=== PATIENT | male | born 1965 | race Caucasian/White ===

== ENCOUNTER 2022-08-05 17:10 | Emergency (ER) | payer BC, SELFPAY ==
[2022-08-05 17:11] VITALS: BP 145/89; PULSE 116; RESP 14; TEMP 36.2; O2SAT 99; BMI 27.8
--- NOTE | 2022-08-05 17:28 | CT_ITS ---
STUDY: CT ABDOMEN AND PELVIS WITHOUT CONTRAST REASON FOR EXAM: Male, 57 years old. Pain RADIATION DOSAGE (If Supplied By Facility): CTDIvol = ( 11.07 ) mGy, DLP = ( 572.47 ) mGycm TECHNIQUE: Transaxial images were obtained from the dome of the diaphragm to the symphysis pubis without oral contrast, and without intravenous contrast. Sagittal and coronal images were reconstructed. Individualized dose optimization techniques were used for this CT. COMPARISON: None. FINDINGS: The visualized lung bases are unremarkable. The visualized portions of the heart are within normal limits. Nonspecific fatty infiltrated liver without mass or bile duct dilatation.. Normal gallbladder and extrahepatic biliary system. Normal spleen. Normal pancreas. Normal bilateral adrenal glands. Normal right kidney. Normal left kidney. Normal visualized stomach. Normal small intestine. Diverticular changes of the descending colon with focal segmental thickening of the membreno of the distal descending colon and stranding in the fat consistent with acute diverticulitis. There is no peridiverticular abscess. No evidence for acute appendicitis. Mild atherosclerotic changes of the aorta without evidence for aneurysm. Normal inferior vena cava. Normal retroperitoneum. Poorly distended bladder which cannot be adequately evaluated.. There is a very small amount of fluid within the pouch of Rohan. Small bilateral fat-containing inguinal hernias. Lumbar spine demonstrates mild degenerative change CT/Abdomen/Pelvis without Cont IMPRESSION: Acute diverticulitis of the distal descending colon without evidence for peridiverticular abscess. Electronically Signed: Atif Guthrie MD at 18:02 [facility] ,
--- NOTE | 2022-08-05 17:31 | ED.VIS.GI ---
HPI HPI - GI History of Present Illness Chief Complaint: Abd Pain Informant: patient Narrative Narrative: Sent from urgent care progress for left lower quad abdominal pain over 3 days. No fevers. Normal bowel movements. No blood. History of multiple diverticulitis in the past this would potentially be his fourth 1. Last time was 5 years ago. Hospitalized in 2010 after his first 1. He saw surgery as an inpatient then. None since. Denies nausea or vomiting. No urinary symptoms. Prior similar symptoms: Yes PFSH PFSH Medical History Diverticulosis Home Medications cefdinir 300 mg capsule 300 mg PO BID #19 caps 08/05/22 [Rx Last Taken Unknown] hydrocodone-acetaminophen 5-325mg 5mg-325mg 1 tab PO Q6H PRN PRN Pain 3 days #10 TABLETS 08/05/22 [Rx Last Taken Unknown] metronidazole 500 mg tablet 500 mg PO Q8H #29 tabs 08/05/22 [Rx Last Taken Unknown] metronidazole 500 mg tablet 500 mg PO Q8H #29 tabs 08/05/22 [Rx Last Taken Unknown] omeprazole 20 mg capsule,delayed release 20 mg PO DAILY 08/05/22 [History Last Taken Unknown] Allergy/AdvReac Type Severity Reaction Status Date / Time No Known Allergies Allergy Verified 08/05/22 17:11 Social History Smoking Status: Never smoker ROS ROS ED Constitutional Constitutional ED: Denies chills, fever(s) or sweats Eyes Eyes: Denies change in vision ENT ENT ED: Denies dysphagia or sore throat Cardiovascular Cardiovascular: Denies chest pain, leg edema, palpitations or racing heartbeat Respiratory/Chest Respiratory/Chest: Denies cough, dyspnea or dyspnea on exertion Gastrointestinal Gastrointestinal: Reports abdominal pain; Denies diarrhea, nausea or vomiting Genitourinary Genitourinary ED: Denies dysuria, hematuria or urinary frequency Musculoskeletal Musculoskeletal: Denies back pain, extremity pain or neck pain Integumentary Denies rash or wounds Neurologic Neurologic: Denies headache(s), paresthesias or weakness EXAM Physical Exam Const Vital Signs: 08/05/22 17:11 Temperature 97.2 F L Temperature Source Temporal Pulse Rate 116 H Respiratory Rate 14 Blood Pressure 145/89 H Blood Pressure Mean 107 Pulse Ox 99 Oxygen Delivery Method Room Air Positive well nourished and well developed General Appearance ED: well developed and NAD HEENT Reports moist mucous membranes normocephalic and atraumatic Eyes PERRL, EOMs intact bilaterally and conjunctivae normal General Eye ED: Yes normal appearance of both eyes Neck no lymphadenopathy and supple General: Negative for tenderness Chest Wall Chest: Negative for tenderness Resp normal respiratory effort and normal air movement Effort and Inspection: symmetric chest movement; Negative for respiratory distress Cardio regular rhythm and no murmurs Rate: tachycardic Peripheral Pulses: pulses 2+ throughout GI normal to inspection, nondistended, normoactive bowel sounds GI Narrative: Tender deep palpation left lower quadrant. There is no guarding or rebound. Negative Hi's or McBurney's tenderness. Palpation: Negative for guarding or rebound tenderness present Back/Spine no CVA tenderness and no thoracic nor lumbar tenderness Extremity normal to inspection General Extremety ED: Negative for edema or tenderness General Extremity: Negative for edema Neuro oriented x3 and no sensory deficits noted Sensorium / Orientation: awake and alert Skin no rashes or lesions noted and no wounds MDM MDM MDM Narrative Medical decision making narrative: Patient afebrile tachycardic he is nontoxic. Tender left lower quadrant. Differential likely a diverticulitis less likely perforation or kidney stones. No surgical abdomen for concerns for any volvulus. With progressive over [address] to rule out any complication from diverticulitis. Labs will be drawn. Fluids given for his tachycardia. He declines any pain medicines. CT scan abdomen pelvis and reviewed by myself and read by radiology acute diverticulitis descending colon no abscess no perforations. Labs are stable. On reevaluation he states he would like anti-inflammatories for which Toradol was given he did not want opiates as he was driving. He was given Flagyl and cefdinir in the ED. Initial meds to beds with hydrocodone and his antibiotics however there was shortage on cefdinir, this was sent to his pharmacy for pickup tomorrow. Return precautions. Recurrent diverticulitis. He is given follow-up with surgery for discussion as outpatient treatment. She can follow-up with GI for future colonoscopy. He will follow-up with his PCP. All questions were answered. Lab Data Attestation: I reviewed the patient's lab results. Labs: Laboratory Results - last 24 hr 08/05/22 08/05/22 17:35 17:35 WBC 6.7 RBC 4.52 L Hgb 15.2 Hct 44.7 MCV 98.9 H MCH 33.6 H MCHC 34.0 RDW Std Deviation 46.6 H RDW Coeff of Elaina 12.7 Plt Count 224 MPV 10.1 Immature Gran % (Auto) 0.400 Neut % (Auto) 83.0 H Lymph % (Auto) 7.0 L [place] % (Auto) 9.2 Eos % (Auto) 0.3 Baso % (Auto) 0.1 Absolute Neuts (auto) 5.6 Absolute Lymphs (auto) 0.47 L Nucleated RBC % 0 Differential Comment SCANNED Sodium 140 Potassium 3.7 Chloride 105 Carbon Dioxide 27.0 Anion Gap 8 BUN 11 Creatinine 0.76 Estim Creat Clear Calc 108.53 Est GFR (MDRD) Af Amer 137 Est GFR (MDRD) Non-Af 113 BUN/Creatinine Ratio 14.5 Glucose 117 H Calcium 8.8 Radiography Diagnostic Testing: Clinical Impression(s) from Imaging Studies Abdomen/Pelvis CT 08/05/22 17:28 IMPRESSION: Acute diverticulitis of the distal descending colon without evidence for peridiverticular abscess. Electronically Signed: Atif Guthrie MD at 18:02 EST , Discharge Plan Triage Chief Complaint: Abd Pain ED Provider: Joey Roach Dx/Rx/DC Orders Clinical Impression: Acute diverticulitis of intestine, Abdominal pain, LLQ Instructions: ED Diverticulitis Prescriptions: New hydrocodone-acetaminophen [hydrocodone-acetaminophen] 5-325 mg tablet 1 tab PO Q6H PRN PRN (Reason: Pain) 3 Days Qty: 10 0RF metronidazole [metronidazole] 500 mg tablet 500 mg PO Q8H Qty: 29 0RF cefdinir 300 mg capsule 300 mg PO BID Qty: 19 0RF metronidazole [metronidazole] 500 mg tablet 500 mg PO Q8H Qty: 29 0RF No Action omeprazole 20 mg Capsule,Delayed Release(Dr/Ec) 20 mg PO DAILY Primary Care Provider: Care Physician,No Primary Referrals: Rolando Mejía DO [Non-Staff] - 3-5 Days Josr Gill DO [Med Staff - Active Staff] - 1-2 Weeks Elaine Martínez MD [Med Staff - Active Staff] - 1-2 Weeks Activity Restrictions/Additional Instructions: Take antibiotics as prescribed. Avoid alcohol products while on antibiotics. Pain medicine as needed. Return if worsening symptoms. Follow-up with GI for future colonoscopy. Follow-up with general surgeon due to recurrent diverticulitis. Follow-up with your doctor for recheck. Disposition Disposition: Home, Self Care Discharge Date/Time: 08/05/22 19:03
[2022-08-05] MEDS: 0.9% Normal Saline 1,000 ML 1000 ML IV (17:36)
[2022-08-05 17:59] LABS: Absolute Lymphocyte Count 0.47 X10^3/uL (0.83-4.51); Absolute Neutrophil Count 5.6 X10^3/uL (2.0-7.7); Basophil# 0.01 X10^3/uL; Basophil% 0.1 % (0-1); Eosinophil# 0.02 X10^3/uL; Eosinophils% 0.3 % (0-5); Hematocrit 44.7 % (40-54); Hemoglobin 15.2 g/dL (13.0-16.5); Lymphocyte # 0.47 X10^3/ul (0.83-4.51); Mean Corpuscular Hgb 33.6 pg (27.0-32.0); Mean Corpuscular Volume 98.9 fL (80-94); Mean Platelet Vol. 10.1 fl (6.2-12.0); Monocyte# 0.62 X10^3/uL; Monocyte% 9.2 % (0-10); NRBC Flagged by Analyzer 0 % (0-5); Neutrophil # 5.59 X10^3/uL (2.7-7.7); POSITIVE DIFFERENTIAL YES; Platelet Count 224 K/mm3 (150-450); RBC Distribution Width CV 12.7 % (11.6-14.6); RBC Distribution Width SD 46.6 fl (35.1-43.9); Red Blood Count 4.52 M/mm3 (4.6-6.2); White Blood Count 6.7 K/mm3 (4.4-11.0)
[2022-08-05 18:02] LABS: Differential Indicated SCAN CRITERIA MET
[2022-08-05 18:16] LABS: Anion Gap 8 (5-15); BUN 11 mg/dL (7-18); BUN/Creat Ratio 14.5 RATIO (10-20); Calcium,Total 8.8 mg/dL (8.5-10.1); Chloride 105 mmol/L (98-107); Creatinine, Serum 0.76 mg/dL (0.70-1.30); EST Glomerular Filtration Rate 113 mL/min (>60); Est Glom Filt Rate - Afr Amer 137 mL/min (>60); Estimated Creatinine Clearance 108.53 ml/min; Glucose 117 mg/dL (74-106); Potassium 3.7 mmol/L (3.5-5.1); Sodium Level 140 mmol/L (136-145)
[2022-08-05 18:18] LABS: Differential Comment SCANNED
[2022-08-05] MEDS: metroNIDAZOLE 500 MG Tablet PO (18:35)
[2022-08-05] MEDS: Ketorolac 15 MG/ML Vial IV (18:36)
--- NOTE | 2022-08-05 18:39 | CM.ED ---
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 Patient was alert laying in hospital bed and agreeable to speak with SW. SW inquired about patient's current insurance and PCP. Patient verified his insurance and stated he has a PCP but he doesn't see that doctor currently and doesn't want to return to that doctor. SW provided patient with a list of PCPs that accept his insurance from his insurance website. Patient was receptive towards list, no other needs voiced. SW remains available if needs arise. Janny Marti PACKAGE SEALER, SHAMAR
[2022-08-05] MEDS: Cefdinir 300 MG Capsule PO (18:54)
== END 2022-08-05 19:03 | disposition home or self-care (01) ==
PROVIDERS: Emergency Provider Emergency Medicine; Visit Provider Emergency Medicine
DX: K57.32 Diverticulitis of large intestine without perforation or abscess without bleeding (principal); R10.32 Left lower quadrant pain
CPT/HCPCS: 74176; 80048; 85025; 96361; 96374; 99283; J7030; A4216